=== PATIENT | female | born 1965 | race Hispanic/Latino ===

== ENCOUNTER 2021-03-03 00:41 | Emergency (ER) | payer OTHER ==
[~2021-03-03] VITALS: Ht 152.4 cm; Wt 59.0 kg
[2021-03-03 01:07] VITALS: BP 130/78
[2021-03-03 01:52] LABS: BASOPHILS % (AUTO) 0.2 % (0.0-5.0); EOSINOPHILS % (AUTO) 0.2 % (0.0-8.0); HEMATOCRIT 37.3 % (36-48); LYMPHOCYTES % (AUTO) 8.5 % (21.0-51.0); MEAN CORPUSCULAR HEMOGLOBIN 30.2 pg (27.0-33.0); MEAN CORPUSCULAR HGB CONC 33.2 g/dL (32.0-36.0); MONOCYTES % (AUTO) 2.8 % (3.0-13.0); NEUTROPHILS % (AUTO) 87.9 % (40.0-77.0); PLATELET COUNT (AUTO) 252 K/uL (130-400); RED CELL DISTRIBUTION WIDTH 12.2 % (11.0-15.5)
[2021-03-03 01:57] LABS: BILIRUBIN,URINE Negative (NEGATIVE); COLOR,URINE Yellow (YELLOW); GLUCOSE, URINE (UA) Negative (NEGATIVE); KETONES,URINE Negative (NEGATIVE); LEUKOCYTE ESTERASE ,URINE Trace (NEGATIVE); NITRATE,URINE Negative (NEGATIVE); OCCULT BLOOD,URINE Negative (NEGATIVE); PH,URINE 5.5 (5.0-8.0); PROTEIN,URINE Negative (NEGATIVE)
[2021-03-03 01:59] LABS: APPEARANCE,URINE SLIGHTLY CLOUDY (CLEAR)
[2021-03-03 02:05] LABS: CREATININE 0.6 mg/dL (0.5-1.5)
[2021-03-03 02:10] LABS: ALBUMIN 3.9 g/dL (3.5-5.0); BILIRUBIN,TOTAL 0.2 mg/dL (0.2-1.0); TOTAL PROTEIN, SERUM 7.6 g/dL (6.0-8.3)
[2021-03-03 02:14] LABS: BACTERIA,URINE Few /HPF (None Seen); MUCUS,URINE Rare LPF (None Seen); RBC,URINE 0-1 /HPF (0-1); SQUAMOUS EPITHELIAL CELL,UR 0-2 /HPF (0-2)
[2021-03-03] MEDS ORDERED: ONDANSETRON 4MG INJ IVP ONE (02:30)
[2021-03-03] MEDS ORDERED: DICYCLOMINE 20MG (10MG/ML) AMP IM ONE (02:30)
[2021-03-03] MEDS ORDERED: FAMOTIDINE 20MG VIAL IV ONE (02:30)
[2021-03-03] MEDS ORDERED: ONDA4TAB4 PO (06:22)
[2021-03-03] MEDS ORDERED: FAMO-136 PO (06:22)
[2021-03-03 06:27] VITALS: BP 107/67
== END 2021-03-03 06:35 | disposition home or self-care (01) ==
LOC: EDH 00:41
DX: E86.0 Dehydration (principal); R10.13 Epigastric pain; R11.2 Nausea with vomiting, unspecified
CPT/HCPCS: 36415; 80053; 81001; 85025; 96372; 96374; 96375; 99284; J0500; J2405; J3490